=== PATIENT | female | born 1970 | race Hispanic/Latino ===

== ENCOUNTER 2018-01-30 14:01 | Emergency (ER) | payer SELFPAY ==
[2018-01-30] MEDS ORDERED: diphenhydrAMINE 50 MG/ML VIAL ONE (19:01)
[2018-01-30] MEDS ORDERED: Metoclopramide HCl 10 MG/2 ML VIAL ONE (19:01)
[2018-01-30 19:21] LABS: Bilirubin Negative (Negative); Blood, Urine Moderate (Negative); Clarity CLEAR (Clear); Glucose, Urine (Dipstick) Negative (Negative); Leukocyte Negative (Negative); Nitrite Negative (Negative); Protein, Urine (Dipstick) Negative (Neg-Trace); Specific Gravity, Urine 1.017 (1.002-1.036); pH, Urine 6.5 (5.0-9.0)
[2018-01-30 19:23] LABS: Bacteria/HPF None Seen HPF (None Seen); Hyaline Casts/LPF 0-3 HYALINE CAST LPF (0-3 Hyaline); Squamous Epithelial 0-3 HPF (0-3); WBC/HPF 0-3 HPF (0-3)
[2018-01-30 19:24] LABS: #Eosinphils 0.3 thou/uL (0.0-0.7); #Lymphocytes 2.3 thou/uL (1.20-3.40); #Monocytes 0.7 thou/uL (0.11-0.59); #Neutrophils 4.6 thou/uL (1.40-6.50); %Basophils 0.3 % (0.0-1.0); %Eosinophils 3.5 % (0.0-10.0); %Monocytes 9.1 % (0.0-10.0); %Neutrophils 58.1 % (42.0-75.0); Hemoglobin 14.5 g/dL (12.0-16.0); Mean Corpuscular HGB CONC 32.8 g/dL (32.0-36.0); Mean Corpuscular Hemoglobin 26.9 pg (27.0-31.0); Mean Platelet Volume 7.3 fL (7.4-10.4); Platelet Count 308 thou/uL (130-400); RBC Distribution Width 13.4 % (11.5-14.5); Red Blood Cell (RBC) Count 5.38 mill/uL (4.20-5.40); White Blood Cell (WBC) Count 7.9 thou/uL (4.8-10.8)
[2018-01-30 19:26] LABS: Pregnancy Test - Urine (BHCG) Negative (Negative); Pregu Control Background? CLEAR/WHITE (CLR/WHITE); Pregu Control Bar Appear? YES (CONTROL BAR); Specific Gravity 1.017 (1.002-1.036)
--- NOTE | 2018-01-30 19:36 | RAD ---
CHEST ONE VIEW 01/30/18 HISTORY: Chest pain. COMPARISON: None. FINDINGS: Lungs are clear. No pneumothorax or effusion. The cardiac silhouette and mediastinal contours are wit hin normal limits. IMPRESSION: No acute intrathoracic abnormality. POS: [facility]
[2018-01-30 19:44] LABS: ALT (SGPT) 53 U/L (8-55); AST (SGOT) 35 U/L (5-34); Albumin 4.8 g/dL (3.5-5.0); Alkaline Phosphatase 163 U/L (40-150); Anion Gap 9 mmol/L (10-20); BUN (Urea Nitrogen) 16 mg/dL (7.0-18.7); Bilirubin, Total 0.4 mg/dL (0.2-1.2); Calc. Creatinine Clearance 0 mL/min (70-130); Calcium 9.9 mg/dL (7.8-10.44); Carbon Dioxide 28 mmol/L (22-29); Chloride 105 mmol/L (98-107); Estimated GFR-MDRD 85; Globulin 4.3 g/dL (2.4-3.5); Glucose 101 mg/dL (70-105); Lipase 36 U/L (8-78); Potassium 3.8 mmol/L (3.5-5.1); Protein, Total 9.1 g/dL (6.0-8.3); Sodium 138 mmol/L (136-145)
== END 2018-01-30 21:35 | disposition home or self-care (01) ==
LOC: ERS 14:01
DX: R51 Headache (principal); R31.9 Hematuria, unspecified; D64.9 Anemia, unspecified; Z79.899 Other long term (current) drug therapy
CPT/HCPCS: 71045; 80053; 81003; 81015; 81025; 83690; 85025; 93005; 96365; 96366; 96375; J1200; J2765